=== PATIENT | male | born 1990 | race Caucasian/White ===

== ENCOUNTER 2021-01-30 21:06 | Emergency (ER) | payer OTHER ==
[~2021-01-30] VITALS: Ht 172.7 cm; Wt 75.7 kg
[2021-01-30] MEDS ORDERED: LIDOCAINE 1%-EPI 1:100,000 20 ML VIAL ONE (21:28)
--- NOTE | 2021-01-30 21:30 | NUR ---
PATIENT BIBSELF C/O LEFT THIGH LACERATION, UPDATED TDAP. PATIENT IS A/O X 4, RR EVEN AND UNLABORED, NO SOB NOTED. PATIENT CONNECTED TO MONITORS.
--- NOTE | 2021-01-30 21:31 | NUR ---
EMT AT BEDSIDE
[2021-01-30] MEDS ORDERED: CEPH500T PO (22:16)
[2021-01-30] MEDS ORDERED: IBUP-1955 PO (22:16)
[2021-01-30] MEDS ORDERED: CEPHALEXIN MONOHYDRATE 500 MG CAPSULE PO ONE ×2 (22:28→22:30)
[2021-01-30] MEDS ORDERED: ONDANSETRON 4 MG TAB.RAPDIS ONE (22:29)
[2021-01-30] MEDS ORDERED: ONDANSETRON 4 MG TAB.RAPDIS SL ONE (22:30)
--- NOTE | 2021-01-30 22:30 | NUR ---
Patient discharged to home in stable condition.Rx and Written and verbal after care instructions given. Patient verbalizes understanding of instruction.
[2021-01-30 22:40] VITALS: BP 116/69
== END 2021-01-30 22:41 | disposition home or self-care (01) ==
LOC: ER 21:13
DX: S71.112A Laceration without foreign body, left thigh, initial encounter (principal); Z88.8 Allergy status to other drugs, medicaments and biological substances; Z79.899 Other long term (current) drug therapy; W26.8XXA Contact with other sharp object(s), not elsewhere classified, initial encounter; Y93.39 Activity, other involving climbing, rappelling and jumping off; Y92.34 Swimming pool (public) as the place of occurrence of the external cause; Y99.8 Other external cause status
CPT/HCPCS: 12004; 99283; J3490; Q0162

== ENCOUNTER 2021-02-05 20:59 | Emergency (ER) | payer OTHER ==
[~2021-02-05] VITALS: Ht 167.6 cm; Wt 74.8 kg
[~2021-02-05 20:59] MED LIST: CEPH500T PO; IBUP-1955 PO
--- NOTE | 2021-02-05 21:15 | NUR ---
PATIENT BIBRA AND [employer] C/O RUNNING IN THE MIDDLE OF STREET AND HITTING DOORS. PSYH EVAL, -SI/HI. PATIENT IS A/O X 4, RR EVEN AND UNLABORED NO SOB NOTED. PATIENT CONNECTED TO [employer] AND [employer]. SITTER AT BEDSIDE.
[2021-02-05 21:48] LABS: BASOPHILS % (AUTO) 0.5 % (0.0-2.0); EOSINOPHILS % (AUTO) 4.2 % (0.0-6.0); HEMATOCRIT 37 % (39-51); HEMOGLOBIN 12.3 g/dL (13.5-17.5); LYMPHOCYTES % (AUTO) 26.9 % (20.0-44.0); MEAN CORPUSCULAR HGB CONC 33 g/dl (31.0-36.0); MEAN CORPUSCULAR VOLUME 89 fL (80-96); MONOCYTES # (AUTO) 0.9 K/uL (0.1-1.30); MONOCYTES % (AUTO) 12.5 % (2.0-12.0); NEUTROPHILS # (AUTO) 4.1 K/uL (1.8-8.9); NEUTROPHILS % (AUTO) 55.9 % (43.0-81.0); PLATELET COUNT (AUTO) 263 K/uL (150-450); RED BLOOD CELL COUNT(AUTO) 4.15 MIL/uL (4.5-6.0); WHITE BLOOD COUNT (AUTO) 7.3 K/uL (4.3-11.0)
[2021-02-05 22:03] LABS: ALANINE AMINOTRANSFERASE 101 U/L (12-78); ALBUMIN 3.7 g/dL (3.4-5.0); ALKALINE PHOSPHATASE 70 U/L (46-116); ASPARTATE AMINOTRANSFERASE 103 U/L (15-37); BILIRUBIN,DIRECT 0.1 mg/dL (0.0-0.2); BILIRUBIN,TOTAL 0.4 mg/dL (0.2-1.0); CALCIUM, SERUM 9.1 mg/dL (8.5-10.1); CARBON DIOXIDE 29 mmol/L (21-32); CHLORIDE 102 mmol/L (98-107); CREATININE 0.9 mg/dL (0.6-1.3); GLUCOSE 99 mg/dL (74-106); POTASSIUM 3.6 mmol/L (3.5-5.1); SODIUM SERUM 140 mmol/L (136-145); TOTAL PROTEIN, SERUM 7.2 g/dL (6.4-8.2); UREA NITROGEN, BLOOD 11 mg/dL (7-18)
[2021-02-05 22:07] LABS: ACETAMINOPHEN 0 ug/ml (10-30); ALCOHOL, BLOOD < 3 mg/dL (0-0)
[2021-02-05 22:34] LABS: BILIRUBIN,URINE SMALL (NEGATIVE); COLOR,URINE YELLOW (YELLOW); LEUKOCYTE ESTERASE ,URINE NEGATIVE (NEGATIVE); NITRITE, URINE NEGATIVE (NEGATIVE); PROTEIN,URINE NEGATIVE (NEGATIVE); UGLUCOSE NEGATIVE (NEGATIVE)
[2021-02-06] MEDS ORDERED: OLANZAPINE 10 MG VIAL IM ONE ×2 (00:11→00:30)
--- NOTE | 2021-02-06 00:30 | NUR ---
PATIENT AMBULATED TO RESTROOM AND RETURNED TO BED. PROVIDED WITH PO FLUIDS, TOLERATING WELL.
--- NOTE | 2021-02-06 09:24 | NUR ---
[facility] [phone]
--- NOTE | 2021-02-06 10:11 | NUR ---
THE PATIENT IS ALERT AND ORIENTED X3. DENIES PAIN. IN ROOM AIR AND DENIES SOB. RESPIRATION REGULAR AND UNLABORED. WILL CONTINUE TO MONITOR THE PATIENT.
[2021-02-06] MEDS ORDERED: OLANZAPINE 5 MG TABLET ONE (10:20)
[2021-02-06] MEDS ORDERED: OLANZAPINE 5 MG TABLET PO ONE (10:30)
--- NOTE | 2021-02-06 10:40 | NUR ---
PATIENT WATCHING TV. CALM AND COOPERATIVE AT THIS TIME. WILL CONTINUE TO MONITOE THE PATIENT.
[2021-02-06] MEDS ORDERED: CEPH500C2 PO (11:28)
[2021-02-06] MEDS ORDERED: OLAN5TAB3 PO (11:28)
[2021-02-06] MEDS ORDERED: SULF1TAB48 PO (11:28)
--- NOTE | 2021-02-06 11:33 | NUR ---
Patient discharged to home in stable condition. Written and verbal after care instructions given. Patient verbalizes understanding of instruction.
[2021-02-06 11:38] VITALS: BP 121/70
== END 2021-02-06 11:41 | disposition home or self-care (01) ==
LOC: ER 21:02
DX: R46.1 Bizarre personal appearance (principal); Z88.8 Allergy status to other drugs, medicaments and biological substances; Z60.2 Problems related to living alone; Z79.899 Other long term (current) drug therapy
CPT/HCPCS: 36415; 80048; 80076; 80143; 80307; 80320; 81003; 85025; 96372; 99285; J3490; G0480